=== PATIENT | female | born 1995 | race Caucasian/White ===

== ENCOUNTER 2023-06-26 00:17 | Emergency (ER) | payer OTHER, SELFPAY ==
[2023-06-26] VITALS (8 sets, daily range): BP systolic 93–119; BP diastolic 54–70; PULSE 64–97; RESP 13–23; TEMP 36.8; O2SAT 100; BMI 26.6
--- NOTE | 2023-06-26 00:53 | ECG_ITS ---
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
--- NOTE | 2023-06-26 00:54 | ED_ITS ---
HPI - General Adult General Chief complaint: Dizziness Stated complaint: dizzy/general fatigue Time Seen by Provider: 06/26/23 00:22 Source: patient Mode of arrival: walk-in Limitations: no limitations History of Present Illness HPI narrative: patient is about 15 weeks . She presents complaining of fatigue, shortness of breath at rest, chest discomfort. No palpitations. No cough except when I feel the shortness of breath I cough to get my breath again. She had a few episodes of vomiting in the last 2 days - all associated with dizziness. No dizziness now. She said that she was restarted on her hyperthyroid medications around Jun 14. She admitted to history of anxiety but does not take any medicines for that. Her OB is in [place], where she lives. Related Data Home Medications Medication Instructions Recorded Confirmed albuterol sulfate 90 mcg/actuation inhalation 06/26/23 aerosol inhaler (ProAir HFA) propylthiouracil 50 mg tablet mg 06/26/23 Allergies Allergy/AdvReac Type Severity Reaction Status Date / Time amoxicillin Allergy Mild Hives Verified 06/26/23 00:23 latex Allergy Mild Hives Verified 06/26/23 00:23 [facility] Social History Smoking status: Never smoker Exam Narrative Exam Narrative: Nurses notes and vital signs reviewed and patient is not hypoxic. afebrile General: Well-appearing and in no apparent distress. Skin: Warm, dry, no pallor noted. No rash. Head: Normocephalic, atraumatic. Neck: Supple, non-tender. no meningismus. Eye: Pupils are equal, round and EOMI. No scleral icterus. Ears, Nose, Mouth, and Throat: Oral mucosa is moist Cardiovascular: Regular Rate and Rhythm without murmur, gallop or rub. Respiratory: No accessory muscle use or respiratory distress. Lungs are clear to auscultation, no wheezing, rales or rhonchi Back: No CVA tenderness Musculoskeletal: normal ROM, no calf or popliteal tenderness, no lower extr emity edema/swelling GI: Abdomen is soft, non-distended. Normal bowel sounds. No tenderness to palpation. No rebound, guarding, or rigidity noted. Neurological: A&O x4. No cranial nerve dysfunction observed. No truncal ataxia. Moves all extremities. Sensation intact. Psychiatric: Cooperative and interactive. Normal mood and affect. Constitutional Vital Signs, click to edit/add: Last Vital Signs Temp 98.3 F 06/26/23 00:23 Pulse 75 06/26/23 01:30 Resp 22 06/26/23 01:30 BP 93/56 06/26/23 01:30 Pulse Ox 100 06/26/23 00:23 O2 Del Method Room Air 06/26/23 00:52 Course Vital Signs Vital signs: Vital Signs Temperature 98.3 F 06/26/23 00:23 Pulse Rate 91 H 06/26/23 00:23 Respiratory Rate 20 06/26/23 00:23 Blood Pressure 119/70 06/26/23 00:23 Pulse Oximetry 100 06/26/23 00:23 Oxygen Delivery Method Room Air 06/26/23 00:23 Temperature 98.3 F 06/26/23 00:23 Pulse Rate 75 06/26/23 01:30 Respiratory Rate 22 06/26/23 01:30 Blood Pressure 93/56 06/26/23 01:30 Pulse Oximetry 100 06/26/23 00:23 Oxygen Delivery Method Room Air 06/26/23 00:52 Medical Decision Making MDM Narrative Medical decision making narrative: Patient was placed on school bus monitor and EKG obtained. Blood drawn and sent for evaluation including free T3 and free T4. Orthostatic vitals were negative. She was ordered to receive a liter of NS IVF. Blood tests were unremarkable. Nothing to account for her symptoms on our ED workup. She was discharged home with recommendation to see her OB in [place] for follow up. Lab Data Lab results reviewed: Yes I reviewed the patient's lab results Labs: Lab Results 06/26/23 Range/Units 01:07 WBC 9.0 (4.0-11.0) 10^3/uL RBC 4.01 L (4.20-5.40) 10^6/uL Hgb 11.4 L (12.0-16.0) g/dL Hct 33.7 L (36.0-48.0) % MCV 84.0 (81.0-99.0) fL MCH 28.4 (26.7-34.0) pg MCHC 33.8 (29.9-35.2) g/dL RDW 13.5 (11.0-15.0) % Plt Count 235 (150-450) 10^3/uL MPV 11.3 (9.5-13.5) fL Neut % (Auto) 69.3 (43.0-75.0) % Lymph % (Auto) 20.4 L (20.5-60.0) % [place] % (Auto) 9.5 (1.7-12.0) % Eos % (Auto) 0.3 L (0.9-7.0) % Baso % (Auto) 0.2 (0.2-2.0) % Neut # (Auto) 6.2 (1.4-6.5) 10^3/uL Lymph # (Auto) 1.8 (1.2-3.8) 10^3/uL [place] # (Auto) 0.9 H (0.3-0.8) 10^3/uL Eos # (Auto) 0.0 (0.0-0.7) 10^3/uL Baso # (Auto) 0.0 (0.0-0.1) 10^3/uL Abs Immat Gran (auto) 0.03 (0.00-0.03) 10^3/uL Imm/Tot Granulo (auto) 0.3 (0.0-0.5) % Sodium 142 (136-145) mmol/L Potassium 3.5 (3.5-5.1) mmol/L Chloride 106 (98-107) mmol/L Carbon Dioxide 24.5 (21.0-32.0) mmol/L Anion Gap 15.0 BUN 5.0 L (7.0-18.0) mg/dL Creatinine 0.53 L (0.55-1.02) mg/dL Est GFR ( Amer) >60 (>=60) Est GFR (Non-Af Amer) >60 (>=60) BUN/Creatinine Ratio 9.4 Glucose 67 L (74-106) mg/dL Calcium 8.6 (8.5-10.1) mg/dL Total Bilirubin 0.2 (0.2-1.0) mg/dL AST 7 L (15-37) U/L ALT 14 (14-59) U/L Alkaline Phosphatase 76 (46-116) U/L Total Protein 7.1 (6.4-8.2) g/dL Albumin 2.9 L (3.4-5.0) g/dL Globulin 4.2 g/dL Albumin/Globulin Ratio 0.7 Free T4 1.36 (0.76-1.46) ng/dL Free T3 3.56 (2.18-3.98) pg/mL Urine Color Yellow (YELLOW) Urine Clarity Clear (CLEAR) Urine pH 6.0 (5.0-9.0) Ur Specific [place] >=1.030 A (1.005-1.025) Urine Protein Trace (NEG/TRACE) mg/dL Urine Glucose (UA) Negative (NEGATIVE) mg/dL Urine Ketones 15 A (NEGATIVE) mg/dL Urine Occult Blood Negative (NEGATIVE) Urine Nitrite Negative (NEGATIVE) Urine Bilirubin Negative (NEGATIVE) Urine Urobilinogen 1.0 (0.2-1.0) EU/dL Ur Leukocyte Esterase Negative (NEGATIVE) ECG Data Interpretation: EKG interpretation: Emergency Department physician interpretation. Normal sinus rhythm at 76bpm. Normal axis, normal intervals and no ST segment elevation or depression. Normal EKG. Discharge Plan Discharge Chief Complaint: Dizziness Clinical Impression: Shortness of breath, , Weakness Patient Disposition: Home, Self-Care Time of Disposition Decision: 01:52 Prescriptions / Home Meds: No Action propylthiouracil 50 mg tablet albuterol sulfate [ProAir HFA] 90 mcg/actuation HFA aerosol inhaler INHALATION Instructions: (ED), Weakness (ED), Shortness of Breath (ED) Stand Alone Forms: Portal Instructions Referrals: Physician,Non-Staff, MD [Primary Care Provider] - 1 week Discharge Date/Time: 06/26/23 02:00
[2023-06-26] MEDS: 0.9 % SODIUM CHLORIDE 1,000 ML 999 ML IV (01:21)
[2023-06-26 01:24] LABS: Basophils Percent Auto 0.2 % (0.2-2.0); Eosinophils Percent Auto 0.3 % (0.9-7.0); Hematocrit 33.7 % (36.0-48.0); Hemoglobin 11.4 g/dL (12.0-16.0); Immature Granulocytes Abs Auto 0.03 10^3/uL (0.00-0.03); Immature Granulocytes Pct Auto 0.3 % (0.0-0.5); Lymphocytes Absolute Auto 1.8 10^3/uL (1.2-3.8); Lymphocytes Percent Auto 20.4 % (20.5-60.0); Mean Corpuscular HGB Conc 33.8 g/dL (29.9-35.2); Mean Corpuscular Hemoglobin 28.4 pg (26.7-34.0); Mean Platelet Volume 11.3 fL (9.5-13.5); Monocytes Absolute Auto 0.9 10^3/uL (0.3-0.8); Monocytes Percent Auto 9.5 % (1.7-12.0); Neutrophils Absolute Auto 6.2 10^3/uL (1.4-6.5); Neutrophils Percent Auto 69.3 % (43.0-75.0); Platelet Count 235 10^3/uL (150-450); Red Blood Count 4.01 10^6/uL (4.20-5.40); Red Cell Distribution Width 13.5 % (11.0-15.0)
[2023-06-26 01:25] LABS: Bilirubin Urine NEGATIVE (NEGATIVE); Blood Urine NEGATIVE (NEGATIVE); Clarity Urine CLEAR (CLEAR); Color Urine YELLOW (YELLOW); Glucose Urine UA NEGATIVE (NEGATIVE); Ketones Urine 15 mg/dL (NEGATIVE); Leukocyte Esterase Urine NEGATIVE (NEGATIVE); Nitrite Urine NEGATIVE (NEGATIVE); Protein Urine TRACE mg/dL (NEG/TRACE); Specific Gravity Urine >=1.030 (1.005-1.025)
[2023-06-26 01:26] LABS: Urine Microscopic Indicated NO
[2023-06-26 01:44] LABS: Alanine Aminotransferase 14 U/L (14-59); Albumin Globulin Ratio 0.7; Albumin Level 2.9 g/dL (3.4-5.0); Alkaline Phosphatase 76 U/L (46-116); Aspartate Amino Transferase 7 U/L (15-37); BUN Creatinine Ratio 9.4; Bilirubin Total 0.2 mg/dL (0.2-1.0); Calcium 8.6 mg/dL (8.5-10.1); Carbon Dioxide 24.5 mmol/L (21.0-32.0); Chloride 106 mmol/L (98-107); Estimated GFR (African America >60 (>=60); Estimated GFR (Non-African Ame >60 (>=60); Globulin 4.2 g/dL; Glucose 67 mg/dL (74-106); Potassium 3.5 mmol/L (3.5-5.1); Sodium 142 mmol/L (136-145); Total Protein 7.1 g/dL (6.4-8.2)
[2023-06-26 01:47] LABS: Free T4 1.36 ng/dL (0.76-1.46)
[2023-06-26 01:55] LABS: Free T3 3.56 pg/mL (2.18-3.98)
== END 2023-06-26 02:00 | disposition home or self-care (01) ==
PROVIDERS: Emergency Provider Emergency Medicine
DX: O26.892 Other specified pregnancy related conditions, second trimester (principal); R06.02 Shortness of breath; R53.1 Weakness; Z3A.15 15 weeks gestation of pregnancy
CPT/HCPCS: 36415; 80053; 81003; 84439; 84481; 85025; 93005; 99284